=== PATIENT | female | born 2005 | race Caucasian/White ===

== ENCOUNTER 2024-08-28 10:15 | Emergency (ER) | payer OTHER, SELFPAY ==
[2024-08-28] VITALS (30 sets, daily range): BP systolic 85–121; BP diastolic 48–101; BMI 33.8
--- NOTE | 2024-08-28 10:41 | ED.GENMED ---
History of Present Illness
<AME London - Last Filed: 08/30/24 15:32>
General
Chief Complaint: Chest Pain
Source: patient and family
Exam Limitations: none
Time Seen by Provider: 08/28/24 10:37
Nursing documentation reviewed up to this point in time: agreed with
History of Present Illness
History of Present Illness:
Patient is a 19-year-old female who presents to the ER for evaluation. Patient has had chest pain which is worse in the morning off and on for the past several months since June. She reports normally it last for 20 minutes and resolves. She
was seen by her chiropractor 2 days ago thinking this was an adjustment issue. He did adjust her. This morning however she was awoken by pain at 2 AM she feels pain wrapping around her chest that radiates to her back and feels a band sensation.
She denies any nausea or vomiting. She was short of breath with this. No prior history of DVT PE. She is on oral control she does not smoke or vape nicotine. No family history of blood clotting disorder. Denies any lower extremity
swelling.
She has not tried painkillers for this because it normally does not last this long. Patient denies any abdominal pain. It Is not made worse with eating.
Review of Systems
<AME London - Last Filed: 08/30/24 15:32>
Review of Systems
Allergies reviewed?: Yes
Other source history: family
All Other Systems: ROS reviewed and negative except as documented in HPI and ROS
Constitutional: Denies fever, fatigue or chills
EENT: Reports no symptoms
Cardiac: Reports chest pain (radiating to back )
ABD/GI: Reports no symptoms; Denies abdominal pain, nausea or vomiting
: Reports no symptoms
Musculoskeletal: Reports back pain (cp radiating to back )
Skin: Reports no symptoms
Neurological: Reports no symptoms
Psychiatric: Reports no symptoms
Phy Exam
<AME London - Last Filed: 08/30/24 15:32>
General Physical Exam
General Presentation: no apparent distress
General age: appears stated age
General Skin: warm and dry
General Habitus: normal
General Mental: alert
General Hydration: appears well hydrated
Cardiovascular Exam
Cardiovascular Exam: regular rate/rhythm and no murmur
Pulmonary Exam
Pulmonary Exam: lungs clear, no respiratory distress and other (chest tender to palpation )
Gastrointestinal Exam
Gastrointestinal Exam: non tender, soft and other (no RUQ tenderness )
Neurological Exam
Neurological Exam: alert and oriented x3
Musculoskeletal Exam
Musculoskeletal Exam: full ROM
Skin Exam
Skin Exam: normal color and warm/dry
Psychiatric Exam
Psychiatric Exam: normal mood/affect
Scores
<AME London - Last Filed: 08/30/24 15:32>
Heart Score for Chest Pain Patients
Heart Score for Chest Pain Patients: 0
Heart Score Risk: 2.5% MACE over next 6 weeks
<Antoine Rign PA-C - Last Filed: 08/28/24 19:13>
Heart Score for Chest Pain Patients
STEMI patient?: No
History: Slightly or Non-Suspicious
ECG: Normal
Age: </= 45 years
Risk Factors: No Risk Factors
Troponin: </= Normal Limit
Heart Score for Chest Pain Patients: 0
Heart Score Risk: 2.5% MACE over next 6 weeks
Course
<AME London - Last Filed: 08/30/24 15:32>
Orders/Labs/Results
Orders:
Orders
08/28/24 10:19
EKG [Electrocardiogram (*1)] Urgent
Reason for Study: Chest Pain
EKG- Treatment ONCE
08/28/24 10:33
CXR2 [CR Chest - 2 Views ] Urgent
Comment:
Reason For Exam: chest pain
08/28/24 10:51
IV Insert/Care/Rem.- Treatment PRN
08/28/24 10:57
CMP [Comprehensive Metabolic Panel] Urgent
Complete Blood Count/With Diff Urgent
DDimer [D-Dimer] Urgent
Lipase Urgent
Troponin I Urgent
08/28/24 11:51
Add On- LAB Urgent
Tests Added?: lipase
08/28/24 14:15
US Abdomen Complete/Upper Urgent
Comment:
Reason For Exam: upper abd pain /chest radiating to back
08/28/24 14:16
Ketorolac [Toradol] 15 mg IV NOW STA
08/28/24 15:03
CT Chest PE Study Urgent
Comment:
Reason For Exam: cp radiating to back
Abnormal Lab Results
08/28/24
10:57
MPV 10.8 H fL
(7.4-10.4)
ALT 48 H U/L
(0-35)
08/28/24 10:57
08/28/24 10:57
Vital Signs
Initial and Last Documented VS:
Initial Vital Signs
Temp Pulse Resp BP Pulse Ox
98.5 F 117 18 120/83 98
08/28/24 10:27 08/28/24 10:27 08/28/24 10:27 08/28/24 10:27 08/28/24 10:27
Last Documented Vital Signs
Temp Pulse Resp BP Pulse Ox
98.5 F 91 21 107/87 97
08/28/24 10:27 08/28/24 18:45 08/28/24 18:45 08/28/24 18:14 08/28/24 18:45
Final Application Reviewer consulted with Physician
Final Application Reviewer consulted with physician?: Yes
Name of Physician Consulted: Jose Alfredo
<Vickey Veliz MD - Last Filed: 08/28/24 15:12>
Orders/Labs/Results
Orders:
Orders
08/28/24 10:19
EKG [Electrocardiogram (*1)] Urgent
Reason for Study: Chest Pain
EKG- Treatment ONCE
08/28/24 10:33
CXR2 [CR Chest - 2 Views ] Urgent
Comment:
Reason For Exam: chest pain
08/28/24 10:51
IV Insert/Care/Rem.- Treatment PRN
08/28/24 10:57
CMP [Comprehensive Metabolic Panel] Urgent
Complete Blood Count/With Diff Urgent
DDimer [D-Dimer] Urgent
Lipase Urgent
Troponin I Urgent
08/28/24 11:51
Add On- LAB Urgent
Tests Added?: lipase
08/28/24 14:15
US Abdomen Complete/Upper Urgent
Comment:
Reason For Exam: upper abd pain /chest radiating to back
08/28/24 14:16
Ketorolac [Toradol] 15 mg IV NOW STA
08/28/24 15:03
CT Chest PE Study Urgent
Comment:
Reason For Exam: cp radiating to back
Abnormal Lab Results
08/28/24
10:57
MPV 10.8 H fL
(7.4-10.4)
ALT 48 H U/L
(0-35)
08/28/24 10:57
08/28/24 10:57
Vital Signs
Initial and Last Documented VS:
Initial Vital Signs
Temp Pulse Resp BP Pulse Ox
98.5 F 117 18 120/83 98
08/28/24 10:27 08/28/24 10:27 08/28/24 10:27 08/28/24 10:27 08/28/24 10:27
Last Documented Vital Signs
Temp Pulse Resp BP Pulse Ox
98.5 F 91 21 107/87 97
08/28/24 10:27 08/28/24 18:45 08/28/24 18:45 08/28/24 18:14 08/28/24 18:45
<Antoine Ring PA-C - Last Filed: 08/28/24 19:13>
Orders/Labs/Results
Orders:
Orders
08/28/24 10:19
EKG [Electrocardiogram (*1)] Urgent
Reason for Study: Chest Pain
EKG- Treatment ONCE
08/28/24 10:33
CXR2 [CR Chest - 2 Views ] Urgent
Comment:
Reason For Exam: chest pain
08/28/24 10:51
IV Insert/Care/Rem.- Treatment PRN
08/28/24 10:57
CMP [Comprehensive Metabolic Panel] Urgent
Complete Blood Count/With Diff Urgent
DDimer [D-Dimer] Urgent
Lipase Urgent
Troponin I Urgent
08/28/24 11:51
Add On- LAB Urgent
Tests Added?: lipase
08/28/24 14:15
US Abdomen Complete/Upper Urgent
Comment:
Reason For Exam: upper abd pain /chest radiating to back
08/28/24 14:16
Ketorolac [Toradol] 15 mg IV NOW STA
08/28/24 15:03
CT Chest PE Study Urgent
Comment:
Reason For Exam: cp radiating to back
Abnormal Lab Results
08/28/24
10:57
MPV 10.8 H fL
(7.4-10.4)
ALT 48 H U/L
(0-35)
08/28/24 10:57
08/28/24 10:57
Vital Signs
Initial and Last Documented VS:
Initial Vital Signs
Temp Pulse Resp BP Pulse Ox
98.5 F 117 18 120/83 98
08/28/24 10:27 08/28/24 10:27 08/28/24 10:27 08/28/24 10:27 08/28/24 10:27
Last Documented Vital Signs
Temp Pulse Resp BP Pulse Ox
98.5 F 91 21 107/87 97
08/28/24 10:27 08/28/24 18:45 08/28/24 18:45 08/28/24 18:14 08/28/24 18:45
<AME London - Last Filed: 08/30/24 15:32>
MDM/Problems Addressed
Differential Diagnosis Includes:
Not limited to costochondritis, less likely PE CAD ,pericarditis
MDM/Problems Addressed:
As documented patient is a 19-year-old female who has had chest pain rating to her back for several months off-and-on but it never lasted this long. Patient denies any abdominal pain abdomen soft and nontender chest is mildly tender. Patient has
not tried any type of NSAIDs for this. Patient is nontoxic on exam no DVT PE history. She is on oral contraceptives. D-dimer negative however on the higher end of negative. Normal labs, negative troponin. Ultrasound unremarkable chest x-ray
unremarkable. Patient evaluated by ED physician will obtain CT to rule out PE since D-dimer on the higher end of normal rule out any other causes of pain if negative diagnostic possibilities include costochondritis musculoskeletal chest pain.
Patient has had some relief with Toradol
Pt just back from ct. CT report pending.
1809: CAre of pt at this time transferred to [facility]
<AME London - Last Filed: 08/30/24 15:32>
*Radiology
Radiology exam reviewed: radiology read reviewed
*Pulse Oximetry
Patient hypoxic: no
*EKG
Interpreted by ED Provider?: Yes
Heart Rate: 103
Rate: tachycardiac
Rhythm: sinus
Ischemia: no ischemia
<Antoine Ring PA-C - Last Filed: 08/28/24 19:13>
*Critical Care Note
Total Time (30-74mins, 75-104mins- exclusive of procedures): Not Applicable
<Antoine Ring PA-C - Last Filed: 08/28/24 19:13>
Update Note
Update Note:
Received care of patient upon signout pending CT of chest. CT of chest is negative for pulmonary embolism. There is moderate diffuse groundglass opacity to suggest obstructive small airways disease follow-up. She did receive some relief with
Toradol. Recommended continued use of nonsteroidal anti-inflammatories. She was not wheezing on exam not hypoxic. Reassured patient. Stable for discharge
ED Attending Note
<AME London - Last Filed: 08/30/24 15:32>
-
Portions of this chart may have been created with voice recognition software.� Occasional wrong word or��sound alike� substitutions may have occurred due to the inherent limitations of voice recognition software.
<Vickey Veliz MD - Last Filed: 08/28/24 15:12>
ED Attending Note
Patient seen and examined by attending physician: Yes
I performed the substantive portion of visit, reviewed & personally made and approve the management plan that is documented in note by myself or MYRON.: Yes
ED Attending Note:
19-year-old female intermittent episodes of midsternal chest discomfort sharp in nature. Some radiation to the back. Has been going on for months. Typically last 20 minutes worse at night most of the time. Started at 2 AM today and has been
continuous. No shortness of breath no true pleuritic pain no abdominal pain nausea vomiting or other complaints.
On exam patient is nontoxic in no distress. Warm and dry. Perfusing well. Lungs clear and equal. Heart regular rate and rhythm borderline tachycardia. Abdomen soft and nontender. No liver or spleen. No rebound or guarding. Extremities are
unremarkable. She has reproducible anterior chest wall tenderness at the left and right sternal border. No crepitus no erythema no warmth no swelling.
Labs are stable although borderline D-dimer. EKG is stable. Borderline tachycardia. Workup unremarkable otherwise.
Discharge Plan
Departure
Patient Disposition: Home (Routine Discharge)
Date of Disposition: 08/28/24
Time of Disposition: 19:12
Patient with high blood pressure during this ER visit?: No
Condition: Fair
Covid-19: Not Applicable
Discharge Problem:
Chest pain
Instructions: Chest Pain That Is Not Caused by the Heart (DC)
Referrals:
Mariel Keen CRNP [Family Provider] -
Activity Restrictions/Additional Instructions:
You may continue to alternate between Tylenol ibuprofen. Follow-up with your family doctor in the next several days .
return if any worsening of symptoms
Interventions
Interventions:
*Risk Screen - Suicide Last Done: 08/28/24 18:24
*General Assessment Last Done: 08/28/24 10:53
*Neglect/Abuse Screening Last Done: 08/28/24 18:24
ED- Fall Risk Assessment Last Done: 08/28/24 10:38
*ED COVID-19 Vaccine History Last Done: 08/28/24 10:27
*Nursing Disposition Last Done: 08/28/24 19:24
ED- Cardiac Assessment Last Done: 08/28/24 10:54
Discharge Date and Time
Discharge Date/Time: 08/28/24 19:24
Print Language: [place]
[2024-08-28 11:15] LABS: % Basophils 0.2 % (0-2); % Eosinophils 0.9 % (0-6); % Immature Granulocytes 0.2 % (0-0.5); % Lymphocytes 20.6 % (20.5-51.1); % Monocytes 5.1 % (1.7-9.3); Absolute Eosinophils 0.1 10^3/uL (0-0.7); Absolute Lymphocytes 1.7 10^3/uL (1.2-3.4); Absolute Monocytes 0.4 10^3/uL (0.1-0.6); Hematocrit 40.9 % (37.0-47.0); Hemoglobin 14.4 g/dL (12.0-16.0); Mean Corp Hgb Conc. 35.2 g/dL (33.0-37.0); Mean Corpuscular Hgb 30.9 pg (27.0-31.0); Mean Corpuscular Volume 87.8 fL (81.0-99.0); Mean Platelet Volume 10.8 fL (7.4-10.4); Nucleated Red Blood Cells % 0 %; Platelet Count 262 10^3/uL (130-400); Red Blood Cell Count 4.66 10^6/uL (4.20-5.40); White Blood Cell Count 8.2 10^3/uL (4.8-10.8)
[2024-08-28 11:21] LABS: ALT (SGPT) 48 U/L (0-35); AST (SGOT) 26 U/L (14-36); Albumin 4.1 g/dl (3.5-5.0); Alkaline Phosphatase 63 U/L (38-126); Blood Urea Nitrogen 12 mg/dl (7-17); Calcium 9.1 mg/dl (8.4-10.2); Carbon Dioxide 23 mmol/L (22-30); Chloride 106 mmol/L (98-107); Estimated Creatinine Clearance 107 ml/min; Glucose 97 mg/dl (70-99); Potassium 4.4 mmol/L (3.5-5.1); Sodium 136 mmol/L (135-145); Total Bilirubin 0.5 mg/dl (0.2-1.3); Total Protein 6.4 g/dl (6.3-8.2); eGFR > 60.00
[2024-08-28 11:22] LABS: D-Dimer 0.48 ug/mlFEU (0.00-0.50)
[2024-08-28 11:33] LABS: Troponin I < 0.012 ng/ml
[2024-08-28 12:03] LABS: Lipase 98 U/L (23-300)
[2024-08-28] MEDS: TORADOL 15 MG IV (14:20)
== END 2024-08-28 19:24 | disposition home or self-care (01) ==
LOC: EMR 10:15
PROVIDERS: Emergency Medicine; Nurse Practitioner; EMERGENCY PHYSICIAN Emergency Medicine; FAMILY PHYSICIAN Nurse Practitioner Family
DX: R07.89 Other chest pain (principal); Z79.3 Long term (current) use of hormonal contraceptives
CPT/HCPCS: 99285; 96374; 71046; 71275; 76700; 80053; 83690; 84484; 85025; 85379; 93005; Q9967